=== PATIENT | female | born 1935 | race Native Hawaiian/Other Pacific Islander ===

== ENCOUNTER 2017-11-08 20:23 | Emergency (ER) | payer MEDICARE, OTHER ==
[2017-11-08 20:33] VITALS: BP 116/74; PULSE 76; RESP 20; TEMP 98.2
--- NOTE | 2017-11-08 20:57 | ED ---
General Adult HPI - General Chief complaint: Extremity Injury, Upper Stated complaint: Fall rt arm injury Time Seen by Provider: 11/08/17 20:35 Source: patient, family, RN notes reviewed Mode of arrival: ambulatory Limitations: no limitations - History of Present Illness Initial comments: This is an 82-year-old female presents emergency Department chief complaint of trip and fall. Patient states she was taking out the trash and tripped and fell striking the right side of her head, right orbital region. Patient states states that there is an abrasion to her right periorbital region she is unsure when her last tetanus was though refuses tetanus. Patient denies any loss conscious. Patient states she has mild neck discomfort denies any back pain. She states she has pain in both her shoulders and primary to her right elbow and wrist region. Patient has an abrasion to her right knee though has full range of motion able to ambulate no difficulty. - Related Data Home Medications Medication Instructions Recorded Confirmed Diphenox-Atrop 2.5-0.025 mg 1 tab PO TID 08/13/14 12/28/15 [Lomotil] Allergies Allergy/AdvReac Type Severity Reaction Status Date / Time No Known Allergies Allergy Verified 11/08/17 20:33 Review of Systems ROS Statement: Those systems with pertinent positive or pertinent negative responses have been documented in the HPI. ROS Other: All systems not noted in ROS Statement are negative. Past Medical History Past Medical History: Osteoarthritis (OA) Additional Past Medical History / Comment(s): Diverticulosis History of Any Multi-Drug Resistant Organisms: None Reported Past Surgical History: Coronary Bypass/CABG, Hernia Repair, Orthopedic Surgery Additional Past Surgical History / Comment(s): R shoulder orthoscopic surgery 2005. ONE EYE CATARACT REMOVAL (DAUGHTER COULD NOT REMEMBER WHICH). Past Anesthesia/Blood Transfusion Reactions: No Reported Reaction Additional Past Anesthesia/Blood Transfusion Reaction / Comment(s): POSSIBLEY PROBLEMS WITH INTUBATION (SORE THROAT, DIFFICULTY TALKING). Past Psychological History: No Psychological Hx Reported Smoking Status: Never smoker Past Alcohol Use History: None Reported Past Drug Use History: None Reported - Past Family History Son(s) Family Medical History: CVA/TIA Additional Family Medical History / Comment(s): son had a stroke in 1993 General Exam Limitations: no limitations General appearance: alert, in no apparent distress Head exam: Present: atraumatic, normocephalic, normal inspection Eye exam: Present: normal appearance, PERRL, EOMI, other (Small abrasion to the right lateral periorbital). Absent: scleral icterus, conjunctival injection, periorbital swelling ENT exam: Present: normal exam, normal oropharynx, mucous membranes moist, TM's normal bilaterally, normal external ear exam Neck exam: Present: normal inspection, full ROM. Absent: tenderness, meningismus, lymphadenopathy Respiratory exam: Present: normal lung sounds bilaterally. Absent: respiratory distress, wheezes, rales, rhonchi, stridor, chest wall tenderness Cardiovascular Exam: Present: regular rate, normal rhythm, normal heart sounds. Absent: systolic murmur, diastolic murmur, rubs, gallop, clicks Extremities exam: Present: other (Tenderness the right elbow, right wrist region , mild swelling patient has limited range of motion secondary pain.) Neurological exam: Present: alert, oriented X3, CN II-XII intact, reflexes normal. Absent: motor sensory deficit Skin exam: Present: warm, dry, intact, normal color. Absent: rash Course Vital Signs 11/08/17 20:29 Temperature 98.2 F Pulse Rate 76 Respiratory 20 Rate Blood Pressure 116/74 O2 Sat by Pulse 96 Oximetry Procedures - Orthopedic Splinting/Casting Injury #1 Side: right Upper Extremity Injury Location: long arm, elbow Upper Extremity Immobilizer: posterior splint, synthetic pre-padded splint Medical Decision Making - Medical Decision Making 82-year-old female presented for a fall. Patient did have head injury, wrist and elbow pain. X-rays were reviewed shows right elbow fracture. Patient was splinted in a long-arm splint, sling was applied. CT of the head and neck were negative for acute abnormality. Patient will follow-up with her orthopedic physician Disposition Clinical Impression: Fall, Head injury, Elbow fracture, right, Abrasion of knee, right Disposition: HOME SELF-CARE Condition: Stable Instructions: Arm Fracture in Adults (ED) Additional Instructions: Please return to the Emergency Department if symptoms worsen or any other concerns. Is patient prescribed a controlled substance at d/c from ED?: No Referrals: Balta Stacy DO [Primary Care Provider] - 1-2 days Zach Bettencourt MD [STAFF PHYSICIAN] - 1-2 days Time of Disposition: 21:28
--- NOTE | 2017-11-08 21:07 | CT ---
EXAMINATION TYPE: CT brain chepe dan DATE OF EXAM: 11/08/2017 COMPARISON: None HISTORY: Neck pain. Headache CT DLP: 1317.3 mGycm Automated exposure control for dose reduction was used. TECHNIQUE: CT scan of the head and cervical spine are performed without contrast. FINDINGS: There is cerebral cortical atrophy. There is no mass effect nor midline shift. There is n o sign of intracranial hemorrhage. The calvarium is intact. There is some straightening of the cervical spine. There is mild narrowing at the disc spaces from C4 to T1. Posterior elements are intact. Facet joints are intact. There is no compression fracture. The skull base is intact. There are fibrotic changes at the lung apices. IMPRESSION: Cerebral atrophy. No acute intracranial abnormality. Spondylotic changes in the lower cervical spine. No fracture.
--- NOTE | 2017-11-08 21:13 | XR ---
EXAMINATION TYPE: XR chest 2V DATE OF EXAM: 11/08/2017 COMPARISON: 08/14/2014 HISTORY: Fall TECHNIQUE: Frontal and lateral views of the chest are obtained. FINDINGS: There is some mild infiltrate at the left lung base. Heart size is normal. Thoracic aorta is atheromatous. There is no pleural effusion. Bony thorax is intact. IMPRESSION: There is minimal new subsegmental atelectasis in the left lower lobe compared to old exa m. Normal heart.
--- NOTE | 2017-11-08 21:14 | XR ---
EXAMINATION TYPE: XR elbow complete RT DATE OF EXAM: 11/08/2017 COMPARISON: NONE HISTORY: Elbow pain TECHNIQUE: 4 views FINDINGS: There is posterior fat pad sign. There is slight deformity of the radial head suspicious fo r nondisplaced fracture. There is no dislocation. IMPRESSION: Elbow joint effusion. I suspect a nondisplaced radial head fracture.
--- NOTE | 2017-11-08 21:15 | XR ---
EXAMINATION TYPE: XR wrist complete RT DATE OF EXAM: 11/08/2017 COMPARISON: NONE HISTORY: Wrist pain TECHNIQUE: 4 views FINDINGS: There is no fracture nor dislocation. Joint spaces are fairly normal. Scaphoid is intact. IMPRESSION: Negative right wrist exam.
[2017-11-08] MEDS ORDERED: ACET/COD 300 MG/30 MG STARTER PACK 6 TAB BTL PO STA (21:25)
== END 2017-11-08 21:40 | disposition home or self-care (01) ==
LOC: EC 20:23
DX: S42.401A Unspecified fracture of lower end of right humerus, initial encounter for closed fracture (principal); S00.211A Abrasion of right eyelid and periocular area, initial encounter; S80.211A Abrasion, right knee, initial encounter; M25.512 Pain in left shoulder; M19.90 Unspecified osteoarthritis, unspecified site; Z95.1 Presence of aortocoronary bypass graft; Z98.890 Other specified postprocedural states; Z98.49 Cataract extraction status, unspecified eye; Z79.899 Other long term (current) drug therapy; W01.10XA Fall on same level from slipping, tripping and stumbling with subsequent striking against unspecified object, initial encounter; Y93.89 Activity, other specified; Y92.480 Sidewalk as the place of occurrence of the external cause
CPT/HCPCS: 29105; 70450; 71046; 72125; 99284

== ENCOUNTER → 2019-11-21 | Outpatient (CLI) | payer MEDICARE, OTHER ==
--- NOTE | 2019-11-21 12:44 | FL ---
Modified barium swallow. HISTORY: Dysphagia. Modified barium swallow was performed with the department of speech pathology. The patient was prese nted with various consistencies of barium. There is no evidence for aspiration or penetration. There is prominent prevertebral soft tissue for which CT is recommended to exclude underlying mass. Hypertrophy of the cricopharyngeus noted. Full re port is to follow from the department of speech pathology. Impression: 1. No evidence for aspiration or penetration. 2. Prominence of the prevertebral soft tissues. I do recommend CT with contrast to exclude underlying mass.
== END | disposition home or self-care (01) ==
LOC: RADFLMAIN 11:16
PROVIDERS: ATTEND Otolaryngology
DX: R13.10 Dysphagia, unspecified (principal)
CPT/HCPCS: 74230

== ENCOUNTER → 2019-11-21 | Outpatient (CLI) | payer MEDICARE, OTHER ==
--- NOTE | 2019-11-21 16:32 | MR ---
EXAMINATION TYPE: MR iac wo/w con DATE OF EXAM: 11/21/2019 COMPARISON: None HISTORY: Hearing loss TECHNIQUE: Multiplanar, multisequence images of the brain and brainstem is performed without and with IV contras t, utilizing 7.5 mL intravenous Gadavist . Small [id number] and high resolution images obtained th rough the internal auditory canals FINDINGS: Diffusion weighted images demonstrate no evidence of a recent infarct or other diffusion ab normality. There is no extra-axial fluid collection. Extensive confluent and scattered hyperintensi ties are present in the pericallosal, subcortical white matter on inversion recovery T2-weighted sequ ences. The ventricular system and cisternal spaces are normal in size and appearance. The brain volu me is age appropriate, there is cortical atrophy. Midline structures demonstrate normal morphology. The craniocervical junction appears within normal limits. Post contrast images demonstrate no abnormal enhancement, in specific there is no cerebellop ontine angle mass. The dural venous sinuses appear patent. The visualized sinuses are clear and the g lobes are intact. IMPRESSION: No internal auditory canal mass.Age-related changes of atrophy and chronic small vessel i schemia.
== END | disposition home or self-care (01) ==
LOC: RADMRIMAIN 15:06
PROVIDERS: ATTEND Otolaryngology
DX: G31.1 Senile degeneration of brain, not elsewhere classified (principal); I67.82 Cerebral ischemia; H91.92 Unspecified hearing loss, left ear
CPT/HCPCS: 70553; A9585

== ENCOUNTER → 2019-12-07 | Outpatient (CLI) | payer MEDICARE, OTHER ==
--- NOTE | 2019-12-08 08:18 | CT ---
EXAMINATION TYPE: CT soft tissue neck wo con DATE OF EXAM: 12/07/2019 HISTORY: neck swelling, abnormal MRI, dysphasia. COMPARISON: MRI IAC November 21, 2019. CT cervical spine November 08, 2017. CT DLP: 300.7 mGycm. Automated Exposure Control for Dose Reduction was Utilized. TECHNIQUE: CT scan of the neck is performed without IV contrast, axial images are obtained, coronal and sagittal reformatted images are reviewed. FINDINGS: Lack of IV contrast is noted to Limited evaluation for mucosal lesions and neck adenopathy. Airway: No gross abnormality seen. Parotid/submandibular glands: No gross abnormality seen. Carotid/Vascular Structures: No significant abnormality and noncontrast CT Osseous Structures: Moderate multilevel disc space narrowing C4-C5 through C6-C7 levels redemonstrate d. Other: Few scattered subcentimeter lymph nodes throughout the neck bilaterally. No suspicious greater than 1 cm neck adenopathy clearly seen. Scleral calcification bilateral globes. Visualized paranasal sinuses are clear. No concerning focal f luid collection or abscess. No significant fat stranding. IMPRESSION: Fairly unremarkable CT neck without contrast study.
== END | disposition home or self-care (01) ==
LOC: RADCTMAIN 13:52
PROVIDERS: ATTEND Otolaryngology
DX: M79.89 Other specified soft tissue disorders (principal); R13.10 Dysphagia, unspecified; R93.3 Abnormal findings on diagnostic imaging of other parts of digestive tract
CPT/HCPCS: 70490